=== PATIENT | female | born 1935 | race Caucasian/White ===

== ENCOUNTER 2016-05-14 12:01 | Inpatient (IN) | payer MEDICARE, OTHER ==
[~2016-05-14] VITALS: Ht 160 cm; Wt 63.6 kg
[~2016-05-14 12:01] MED LIST: AMIO200T2 PO; APIX5TAB PO; BISA5TAB6 PO; CALC1TAB79 PO; FLUO20CA22 PO; FURO20TA3 PO; LEVO88TA44 PO; MODA200T35 PO; MTF1000T PO; NATE120T12 PO; PANT40TA4 PO; PRED1TAB17 PO; PRED5 PO; RANI150T9 PO; SITA100T8 PO; SPIR25TA76 PO; TEN25 PO
[2016-05-14 12:15] VITALS: BP 133/67; PULSE 70; PULSE 72; RESP 16
[2016-05-14 13:39] VITALS: PULSE 54
[2016-05-14] MEDS: SOD CHLORIDE 0.45% 1,000 ML IV SCH (13:43)
[2016-05-14] MEDS ORDERED: NACL 0.9% 3 ML SYG IV SCH (14:00)
[2016-05-14] MEDS: ACCUCHECK XX SCH ×2 (14:00→21:38)
--- NOTE | 2016-05-14 14:21 | HP ---
Date/Time of Note Date/Time of Note DATE: 05/14/16 TIME: 14:11 Assessment/Plan VTE Prophylaxis VTE Prophylaxis Intervention: SCD's Assessment/Plan Problems: (1) Hypothyroidism Status: Chronic Comment: She will be maintained on her levothyroxine replacement therapy please note with the history of the pituitary adenoma we go by free T4 and free T3 to balance Qualifiers: Hypothyroidism type: acquired Qualified Code: E03.9 - Acquired hypothyroidism (2) Adrenal insufficiency Status: Chronic Comment: She will be maintained on her replacement dose steroids prednisone 4 mg morning 2 mg in the afternoon (3) Depression Status: Chronic Comment: She has been on antidepressant therapy with modest response. She is under the care of a board certified geriatric psychiatrist. Her medications will be maintained as an inpatient Qualifiers: Depression Type: major depressive disorder Major depression recurrence: recurrent Active/Remission status: currently active Major depression episode severity: severe Psychotic features: without psychotic features Qualified Code: F33.2 - Severe episode of recurrent major depressive disorder, without psychotic features (4) KATHERYN (obstructive sleep apnea) Status: Chronic Comment: She will have BiPAP overnight during sleep hours (5) Atrial fibrillation Status: Chronic Comment: She remains on her amiodarone as well as blood thinners. Cardiology is consulted (6) CHF with left ventricular diastolic dysfunction, NYHA class 1 Status: Chronic Comment: Noted and she remains on her medication therapy. (7) Diabetes mellitus type 2 in nonobese Status: Chronic Comment: I will adjust her medications after hold her metformin for 2 days after the angiographic dye. (8) Pituitary adenoma Status: Chronic Comment: Noted. (9) Frailty Status: Chronic Comment: She has been an [facility] resident will continue trying to work with her as best were able to (10) Acute occipital temporal infarction Status: Acute Comment: As per the outpatient neurologist Dr. Eligio Peña and will perform the aggressive evaluation. This occurred while she was on Eliquis. The question is whether or not she does in spite of the Eliquis or whether or not there is another issue. (11) Osteoporosis Status: Chronic Comment: Noted resume [facility] HPI/ROS Admit Date/Time Admit Date/Time May 14, 2016 at 12:01 Hx of Present Illness This is a 80-year-old English female who had been residing in an F after some falls at home. She was seen as outpatient consultation in neurology by Dr. Carlos Peña who ordered MRI scans of the cervical spine and brain and evaluation. This was done 48 hours ago. He was contacted by radiology and advised of acute versus subacute occipital lesions 2. Because of this and the patient has been on Eliquis to avoid this he has requested the patient be admitted and undergo CT angiography of the head and neck as well as echocardiography and cardiology consultation. This is in progress now. Patient has not been noting specific neurologic symptoms. Please note she had a fall at the [facility] roughly 5 days ago and has an ecchymosis on the right anterior forehead but the MRI scan performed after that event did not find any evidence of subdural hematoma. ROS Constitutional: no complaints Respiratory: no complaints Cardiovascular: no complaints (No palpitation) Gastrointestinal: no complaints Genitourinary: no complaints PMH/Family/Social Past Medical History Please see problem list Medical History: congestive heart failure (Diastolic dysfunction), diabetes ( Diabetes mellitus type 2), hypertension, hypothyroid, other (Status post prior CVA; atrial fibrillation; diastolic dysfunction; major depressive disorder) Past Surgical History Past Surgical Hx: noncontributory, other Family History Significant Family History: diabetes, hypertension Social History Alcohol Use: none Smoking Status: Never smoker Drug Use: none Exam/Review of Systems Vital Signs Vitals Vital Signs Date Time Temp Pulse Resp B/P Pulse Ox O2 Delivery O2 Flow Rate FiO2 05/14/16 13:39 54 Exam Constitutional: alert Psych: depression Head: hematomas (Hematoma right anterior forehead 2 cm) Eyes: EOMI, nl conjunctiva, nl lids, nl sclera ENMT: mucosa pink and moist, nl external ears & nose, nl lips & teeth, nl nasal mucosa & septum Neck: non-tender, supple Respiratory: clear to auscultation, normal air movement Cardiovascular: nl pulses, regular rate and rhythm Gastrointestinal: nl liver, spleen, non-tender, soft Genitourinary - Male: nl penis Musculoskeletal: nl extremities to inspection, other (Lower extremities with muscular atrophy) Extremities: normal pulses Neurological: DAIRY NUTRITION SPECIALIST II-XII intact, nl speech Medications Medications Current Medications Sodium Chloride (1/2 NS) 1,000 ml @ 70 mls/hr [id number] IV ; Start 05/14/16 at 13 :43 Heparin Sodium (Porcine) (Heparin (5000 Units/0.5 ml)) 5,000 unit Q12 SC ; Start 05/14/16 at 21:00 Insulin Glargine (Lantus) 14 unit QAM SC ; Start 05/15/16 at 09:00 Diagnostic Test (Pha) (Accucheck) 1 ea 02 XX ; Start 05/15/16 at 02:00 Miscellaneous Information 1 ea NOTE XX ; Start 05/14/16 at 14:30 Glucose (Glutose) 15 gm Q15M PRN PO DECREASED GLUCOSE; Start 05/14/16 at 14:30 Glucose (Glutose) 22.5 gm Q15M PRN PO DECREASED GLUCOSE; Start 05/14/16 at 14: 30 Dextrose (D50w Syringe) 25 ml Q15M PRN IV DECREASED GLUCOSE; Start 05/14/16 at 14:30 Dextrose (D50w Syringe) 50 ml Q15M PRN IV DECREASED GLUCOSE; Start 05/14/16 at 14:30 Glucagon (Glucagen) 1 mg Q15M PRN IM DECREASED GLUCOSE; Start 05/14/16 at 14:30 Glucose (Glutose) 15 gm Q15M PRN BUCCAL DECREASED GLUCOSE; Start 05/14/16 at 14 :30 JHONY BUCKNER MD May 14, 2016 14:21
[2016-05-14] MEDS ORDERED: GLUCOSE GEL 15 GRAM TUBE BUCCAL PRN (14:30)
[2016-05-14] MEDS ORDERED: GLUCAGON 1 MG INJ IM PRN (14:30)
[2016-05-14] MEDS: ACETYLCYSTEINE 600 MG CAP PO SCH ×2 (14:30→21:30)
[2016-05-14] MEDS ORDERED: GLUCOSE GEL 15 GRAM TUBE PO PRN ×2 (14:30)
[2016-05-14] MEDS ORDERED: BISACODYL (EC) 5 MG TAB PO PRN (14:30)
[2016-05-14] MEDS ORDERED: DEXTROSE 50% 50 ML SYRINGE IV PRN ×2 (14:30)
[2016-05-14 14:42] VITALS: Ht 160 cm; Wt 63.6 kg
[2016-05-14 15:02] LABS: BASOPHIL # 0.1 10^3/ul (0.0-0.1); EOSINOPHILS # 0.2 10^3/ul (0.0-0.5); EOSINOPHILS % 3.7 % (0.0-7.0); HEMATOCRIT 29.6 % (37.0-47.0); HEMOGLOBIN 9.2 g/dl (12.0-16.0); LYMPHOCYTES # 1.9 10^3/ul (0.8-2.9); LYMPHOCYTES % 30.7 % (15.0-51.0); MEAN CORPUSCULAR HEMOGLOBIN 20.4 pg (29.0-33.0); MEAN CORPUSCULAR HGB CONC 31.2 g/dl (32.0-37.0); MEAN CORPUSCULAR VOLUME 65.5 fl (82.0-101.0); MEAN PLATELET VOLUME 10.4 fl (7.4-10.4); MONOCYTE # 0.7 10^3/ul (0.3-0.9); NEUTROPHIL # 3.4 10^3/ul (1.6-7.5); NEUTROPHILS % 53.6 % (39.0-77.0); PLATELET COUNT 234 10^3/UL (140-440); RED BLOOD COUNT 4.52 10^6/ul (4.20-5.40); RED CELL DISTRIBUTION WIDTH 24.2 % (11.5-14.5); UNCORRECTED WBC 6.3 10^3/ul (4.8-10.8); WHITE BLOOD COUNT 6.3 10^3/ul (4.8-10.8)
[2016-05-14 15:04] LABS: INR 1.23; PROTIME 15.6 Sec (12.2-14.2); PT RATIO 1.2
[2016-05-14 15:05] LABS: ALBUMIN 3.3 g/dl (3.3-4.9); POTASSIUM 4.3 mmol/L (3.5-5.1)
[2016-05-14 15:07] LABS: BILIRUBIN,INDIRECT 0.1 mg/dl (0-1.1); BILIRUBIN,TOTAL 0.1 mg/dl (0.2-1.3); CREATININE 0.97 mg/dl (0.44-1.00)
[2016-05-14 15:08] LABS: ALBUMIN/GLOBULIN RATIO 1.1; CALCIUM 8.2 mg/dl (8.4-10.2); TOTAL PROTEIN 6.3 g/dl (6.1-8.1)
[2016-05-14 15:12] LABS: CONDITION 1; LH ANALYZER COMMENTS 1
[2016-05-14 16:00] VITALS: BP 141/65; PULSE 79; RESP 19
[2016-05-14] MEDS ORDERED: IODIXANOL LOCM 100 ML BTL ONE (16:03)
[2016-05-14] MEDS ORDERED: SOD CHLORIDE 0.9% 100 ML ONE (16:03)
--- NOTE | 2016-05-14 16:57 | RADRPT ---
PROCEDURE: CTA head. CLINICAL INDICATION: CVA. TECHNIQUE: The study was performed utilizing multidetector CT scanner. Direct thin section axial s ections were obtained through the head after the uneventful administration of 80 cc of Visipaque 320 nonionic intravenous contrast material. Coronal and sagittal as well as maximal intensity projecti on reformations were obtained. 3-D images were made. The images were reviewed on a PACS workstation . One or more the following does reduction techniques were utilized: Automated exposure control, adj ustment of themA/ or kV according to patient's size, or use of iterative reconstruction technique. T he total CTDIvol is 41.82 mGy and the DLP is 591.98 mGy-cm. COMPARISON: Brain CT 11/15/2014. Brain MRI 05/12/2016 from [facility]. FINDINGS: There are atherosclerosis calcifications of cavernous and supraclinoid segments of the internal cooley tid arteries with associated mild to moderate stenosis. Moderate to marked focal stenosis of proxima l bilateral A2 segments of anterior cerebral arteries are noted. Otherwise the proximal middle cereb ral arteries and remainder of anterior cerebral arteries are patent without significant stenosis. M oderate to marked focal stenosis is noted in the proximal P1 segment and mild to moderate focal sten osis in the proximal P2 segment of the right posterior cerebral artery. Moderate focal stenosis is noted in the proximal P2 segment of the left posterior cerebral artery. Moderate focal stenosis of p roximal right intradural vertebral artery is noted. Otherwise the remainder of intracranial vertebr al arteries as well as basilar artery are also unremarkable without significant stenosis. No aneury sm or vascular malformation is identified. Cystic lesion is again noted in the sella turcica which is better seen on prior brain MRI. Right frontal scalp swelling and hematoma is again noted without underlying skull fracture. IMPRESSION: 1. Mild to moderate stenosis of cavernous and supraclinoid segments of the internal carotid arterie s. 2. Moderate to marked focal stenosis of proximal bilateral A2 segments of anterior cerebral arterie s. 3. Moderate to marked focal stenosis in the proximal P1 segment and mild to moderate focal stenosis in the proximal P2 segment of the right posterior cerebral artery. 4. Moderate focal stenosis in the proximal P2 segment of the left posterior cerebral artery. 5. Moderate focal stenosis of proximal right intradural vertebral artery. 6. Cystic lesion is again noted in the sella turcica which is better seen on prior brain MRI, pleas e refer to prior brain MRI report for details and recommendation. RPTAT: HH .Jonathan Padilla MD, MD Date Time Electronically viewed and signed by .Jonathan Padilla MD, MD on 05/14/2016 16:57 .N/
[2016-05-14] MEDS: predniSONE 1 MG TAB PO SCH (17:35)
--- NOTE | 2016-05-14 17:41 | RADRPT ---
Echocardiogram Report Patient Name: VISHNU GARCIA Gender: Female Date: 1935 Study Date: 14-May-2016 [employer] Specialist: [facility] Location: 5567 Ref. Physician: JHONY BUCKNER Quality: Adequate Procedures: Transthoracic echocardiogram with complete 2D, M-Mode, and doppler examination. Indications: Occipital Cerebrovascular Accident. 2D/M Mode Doppler Measurement Value Normal Ranges Measurement Value Normal Ranges LVIDd 2D 4.5 3.5 - 5.6 cm AV Peak Jens 1.1 m/sec LVIDs 2D 2.1 2.1 - 4.1 cm AV Peak PG 5.1 mmHg LVPWd 2D 1.0 0.6 - 1.1 cm AI Peak PG 30.7 mmHg IVSd 2D 1.0 0.6 - 1.1 cm AI Peak Jens 2.8 m/sec AoR Diam 2D 3.0 2.0 - 3.7 cm AI PHT 611.8 msec EDV 2D 94.4 cm3 LVOT Peak Jens 0.8 m/sec ESV 2D 9.2 cm3 LVOT Peak PG 2.7 mmHg LA Dimen 2D 3.8 2.3 - 4.0 cm MV E Peak Jens 1.2 m/sec MV A Peak Jens 0.6 m/sec MV E/A 2.2 MV Decel Time 230 msec MV Decel Ogle 5 MV E/A 2.2 TR Peak Jens 2.6 m/sec TR Peak PG 26.1 mmHg RVSP 29.0 mmHg Findings Left Ventricle: Normal left ventricular systolic function. Normal left ventricular cavity size. Mild concentric left ventricular hypertrophy. Ejection fraction is visually estimated at 65 %. Right Ventricle: Normal right ventricular size. Normal right ventricular systolic function. Left Atrium: There is mild enlargement of left atrium. Right Atrium: The right atrium is normal in size. Mitral Valve: Mild mitral leaflet calcification. Moderate mitral annular calcification. Trace mitral regurgitation. Aortic Valve: Aortic cusps appear mildly calcified. Mild aortic valve regurgitation. Tricuspid Valve: Normal appearance of the tricuspid valve. Estimated peak PA systolic pressure 29 mmHg. There is mild tricuspid regurgitation. Pericardium: Normal pericardium with no significant pericardial effusion. Aorta: Normal aortic root. IVC: Normal size and normal respiratory collapse consistent with normal right atrial pressure. Conclusions 1.Normal left ventricular systolic function. Normal left ventricular cavity size. Mild concentric left ventricular hypertrophy. Ejection fraction is visually estimated at 65 %. 2.There is mild enlargement of left atrium. 3.Mild mitral leaflet calcification. Moderate mitral annular calcification. Trace mitral regurgitation. 4.Aortic cusps appear mildly calcified. Mild aortic valve regurgitation. 5.Normal appearance of the tricuspid valve. Estimated peak PA systolic pressure 29 mmHg. There is mild tricuspid regurgitation. 6.Normal size and normal respiratory collapse consistent with normal right atrial pressure. Electronically Signed By: Jet Lipscomb 14-May-2016 17:41:07 -0800 Patient Name: VISHNU GARCIA Study Date: 14-May-2016 [id number]
[2016-05-14 17:46] VITALS: PULSE 55
[2016-05-14] MEDS: INSULIN ASPART [NOVOLOG] 3 ML PEN SC SCH ×3 (18:05→21:00)
--- NOTE | 2016-05-14 18:48 | CONS ---
DATE OF ADMISSION: 05/14/2016 DATE OF CONSULTATION: 05/14/2016 REFERRING PHYSICIAN: Dr. Mckeon. REASON FOR CONSULTATION: Atrial fibrillation. CHIEF COMPLAINT: Abnormal MRI consistent with subacute or acute stroke. HISTORY OF PRESENT ILLNESS: This is a cardiology consultation. Thank you for this referral. Histor y obtained from the patient, discussion with her daughters, discussion with Dr. Mckeon, review of the old chart, discussion with the patient's neurologist, Dr. Peña. This is a pleasant 80-year-old female with a complicated medical history who has been in a alf. The patient was seen by her a new neurologist, Dr. Peña last week as part of and dementia w ork. MRI was ordered. Apparently the day after, she was seen by her neurologist. She had a mech anical fall. She states that she remembers the event well. She was sitting in the wheelchair. She tried to push the table and when she pushed it too hard, she fell off of her wheelchair and hit her head. She has a bump on her head. Apparently, her Eliquis and has not been discontinued given for that reason. She had an MRI done 2 days ago which was about 5 days after the head injury. MRI as an outpatient per Dr. Peña's verbal report to me has shown acute/subacute CVA. The patient's MRI result was obtained today and the patient was advised to be admitted for further workup. The patien t denies any chest pain to me. Denies any palpitation to me at this point. Denies any PND, orthopn ea to me. PAST MEDICAL HISTORY: History of congestive heart failure secondary to diastolic dysfunction, histo ry of diabetes, hypertension, hypothyroidism, and history of multiple prior CVAs, history of paroxys mal atrial fibrillation and multiple DC cardioversions, has remained stable on amiodarone, history o f depression, history of obstructive sleep apnea, history of renal insufficiency. MEDICATIONS: As per medication reconciliation, personally reviewed. SOCIAL HISTORY: The patient does not smoke or drink. Currently, lives at [facility]. She has bee n living with the family and has a very supportive family. Daughter is an RN. ALLERGIES: NO KNOWN ALLERGIES. MEDICATIONS: As per medical reconciliation reviewed. FAMILY HISTORY: No reported early coronary artery disease. REVIEW OF SYSTEMS: As above-mentioned, patient also with general weakness. PHYSICAL EXAMINATION: VITAL SIGNS: Temperature 98, heart rate 55, blood pressure 141/65, respiration rate of 19, saturati ng 92%. HEENT: Normocephalic, atraumatic. Appears in no acute distress. Pupils are equal and round. CARDIOVASCULAR: Regular rate and rhythm. Systolic murmur. PULMONARY: With no wheezes anteriorly. GASTROINTESTINAL: Soft, nontender. EXTREMITIES: With diffuse edema. NEUROLOGIC: Awake, responds appropriately. PSYCHIATRIC: Appears to be calm and pleasant. LABORATORY: WBC of 6.3, hemoglobin 9.2, platelets 234. Sodium 138, potassium 4.3, BUN of 24, creat inine 0.97, glucose 114. WBC on the monitor shows sinus. Echocardiogram was personally reviewed, s howed normal LV size and systolic function. The left atrium appeared to be mildly dilated on the 2D . There is mild LVH. Head CTA shows mild to moderate stenosis of the cavernous sinus of the i nternal carotid arteries. Moderate to marked focal stenosis in the proximal bilateral A2 segment of anterior cerebral arteries. Moderate to marked focal stenosis of the proximal P1 segment of the ri ght posterior cerebral artery. Moderate focal stenosis of the left posterior cerebral artery. Mode rate focal stenosis in the proximal right intradural vertebral artery, a cystic lesion. ASSESSMENT AND PLAN: 1. Possibly acute versus/subacute stroke with history of paroxysmal atrial fibrillation, currently remains in sinus rhythm on amiodarone. 2. History of hypertension, currently well controlled. 3. History of diabetes being controlled with Dr. Mckeon. 4. History of thyroid disorder. 5. 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 6. Fall risk. RECOMMENDATIONS: MRI of the head to be repeated to see if it confirms acute stroke. If there is a stroke reported, then we will have to decide what to do with anticoagulation. If there is no other cause such as carotid disease, the option would be an addition of aspirin or Plavix to her Eliquis versus continuation of current care. Ideally, I would be adding aspirin; however, I am also concern ed about her fall risk. Will discuss further with Dr. Mckeon. Other option would be to decrease the Eliquis dose to 2.5 b.i.d. and then add an aspirin to it. For now, we are awaiting the MRI results of the head. Dictated By: CLEOPATRA SENIOR/CONOR Conf#: [id number] DID#: [id number]
[2016-05-14 20:00] VITALS: PULSE 50
[2016-05-14 20:15] VITALS: BP 125/59; PULSE 54; RESP 14
[2016-05-14] MEDS ORDERED: HEPARIN 5,000 UNIT/0.5 ML SYG SC SCH (21:00)
[2016-05-14] MEDS: ATENOLOL 25 MG TAB PO SCH (21:00)
[2016-05-14] MEDS: MIRTAZAPINE 15 MG TAB PO SCH (21:30)
[2016-05-14] MEDS: FAMOTIDINE 20 MG TAB PO SCH (21:30)
[2016-05-14] MEDS: APIXABAN 5 MG TABLET PO SCH (21:30)
[2016-05-14] MEDS: AMIODARONE 200 MG TAB PO SCH (21:31)
[2016-05-15] VITALS (11 sets, daily range): BP systolic 106–165; BP diastolic 51–67; PULSE 52–63; RESP 16–19
[2016-05-15] MEDS: ACCUCHECK XX SCH ×4 (01:49→20:41)
[2016-05-15] MEDS: SOD CHLORIDE 0.45% 1,000 ML IV SCH ×2 (04:01→09:00)
[2016-05-15] MEDS: LEVOTHYROXINE 88 MCG TAB PO SCH (06:11)
[2016-05-15] MEDS: INSULIN ASPART [NOVOLOG] 3 ML PEN SC SCH ×7 (08:00→20:41)
[2016-05-15 08:18] LABS: BASOPHIL # 0.1 10^3/ul (0.0-0.1); BASOPHILS % 1.3 % (0.0-2.0); EOSINOPHILS # 0.2 10^3/ul (0.0-0.5); EOSINOPHILS % 1.9 % (0.0-7.0); HEMATOCRIT 29.8 % (37.0-47.0); HEMOGLOBIN 9.4 g/dl (12.0-16.0); LYMPHOCYTES # 3.7 10^3/ul (0.8-2.9); LYMPHOCYTES % 46.6 % (15.0-51.0); MEAN CORPUSCULAR HEMOGLOBIN 20.5 pg (29.0-33.0); MEAN CORPUSCULAR HGB CONC 31.5 g/dl (32.0-37.0); MEAN CORPUSCULAR VOLUME 65.2 fl (82.0-101.0); MONOCYTE # 0.8 10^3/ul (0.3-0.9); MONOCYTES % 10.5 % (0.0-11.0); NEUTROPHIL # 3.1 10^3/ul (1.6-7.5); NEUTROPHILS % 39.7 % (39.0-77.0); PLATELET COUNT 268 10^3/UL (140-440); RED BLOOD COUNT 4.57 10^6/ul (4.20-5.40); RED CELL DISTRIBUTION WIDTH 24.1 % (11.5-14.5); UNCORRECTED WBC 7.8 10^3/ul (4.8-10.8); WHITE BLOOD COUNT 7.8 10^3/ul (4.8-10.8)
[2016-05-15 08:24] LABS: CONDITION 1; LH ANALYZER COMMENTS 1
[2016-05-15] MEDS: APIXABAN 5 MG TABLET PO SCH ×2 (08:30→20:40)
[2016-05-15] MEDS: FLUOXETINE 20 MG CAP PO SCH (08:31)
[2016-05-15] MEDS: LINAGLIPTIN 5 MG TABLET PO SCH (08:31)
[2016-05-15] MEDS: AMIODARONE 200 MG TAB PO SCH ×2 (08:32→20:40)
[2016-05-15] MEDS: FUROSEMIDE 20 MG TAB PO SCH (08:33)
[2016-05-15] MEDS: ATENOLOL 25 MG TAB PO SCH ×2 (08:33→20:39)
[2016-05-15] MEDS: predniSONE 1 MG TAB PO SCH ×2 (08:34→17:31)
[2016-05-15] MEDS: ACETYLCYSTEINE 600 MG CAP PO SCH ×2 (08:34→20:40)
[2016-05-15 08:36] LABS: ALBUMIN 3.1 g/dl (3.3-4.9)
[2016-05-15 08:38] LABS: CREATININE 1.17 mg/dl (0.44-1.00)
[2016-05-15 08:39] LABS: ALBUMIN/GLOBULIN RATIO 1.03; BILIRUBIN,INDIRECT 0.2 mg/dl (0-1.1); BILIRUBIN,TOTAL 0.2 mg/dl (0.2-1.3); CALCIUM 8.3 mg/dl (8.4-10.2); TOTAL PROTEIN 6.1 g/dl (6.1-8.1)
[2016-05-15] MEDS: INSULIN GLARGINE [LANtus] 3 ML PEN SC SCH ×2 (09:00→12:07)
[2016-05-15] MEDS: FAMOTIDINE 20 MG TAB PO SCH ×2 (09:00→20:39)
[2016-05-15] MEDS: MODAFINIL 200 MG TAB PO SCH (12:06)
--- NOTE | 2016-05-15 13:55 | PN ---
Date/Time of Note Date/Time of Note DATE: 05/15/16 TIME: 13:53 Assessment/Plan VTE Prophylaxis VTE Prophylaxis Intervention: other Lines/Catheters IV [facility]ter [facility] ([facility] Peripheral IV Urinary Cath still in place: No Assessment/Plan Problems: (1) Adrenal insufficiency Status: Chronic Comment: On replacement therapy and stable (2) Hypothyroidism Status: Chronic Comment: On replacement therapy Qualifiers: Hypothyroidism type: acquired Qualified Code: E03.9 - Acquired hypothyroidism (3) KATHERYN (obstructive sleep apnea) Status: Chronic Comment: Using BiPAP overnight CPAP when out of the hospital (4) CHF with left ventricular diastolic dysfunction, NYHA class 1 Status: Chronic Comment: Adequately controlled (5) Diabetes mellitus type 2 in nonobese Status: Chronic Comment: Well-controlled (6) Frailty Status: Chronic Comment: This continues to be a significant issue (7) Acute occipital temporal infarction Status: Acute Comment: Angiography does demonstrate significant vascular disease. However this is not necessarily in position that would be easy to intervene with. This will have to be evaluated carefully. I will try and communicate with her neurologist to discuss this. (8) Osteoporosis Status: Chronic Comment: Noted Subjective 24 Hr Interval Summary Constitutional: no complaints Respiratory: no complaints Cardiovascular: no complaints Gastrointestinal: no complaints Exam/Review of Systems Vital Signs Vitals Vital Signs Date Time Temp Pulse Resp B/P Pulse Ox O2 Delivery O2 Flow Rate FiO2 05/15/16 12:12 53 05/15/16 12:00 97.6 18 109/55 95 05/15/16 04:00 Room Air Intake and Output 05/14/16 05/14/16 05/15/16 15:00 23:00 07:00 Intake Total 0 ml 1200 ml Balance 0 ml 1200 ml Exam Constitutional: alert, oriented Respiratory: clear to auscultation, normal air movement Cardiovascular: nl pulses, regular rate and rhythm Gastrointestinal: nl liver, spleen, non-tender, soft Results Result Diagram: 05/15/16 0658 05/15/16 0658 Results 24 hrs Laboratory Tests Test 05/14/16 14:26 05/14/16 17:16 05/14/16 21:37 05/15/16 01:47 Activated Partial Thromboplast Time 30.0 Alanine Aminotransferase (ALT/SGPT) 40 Albumin 3.3 Albumin/Globulin Ratio 1.10 Alkaline Phosphatase 105 Anion Gap 16 Aspartate Amino Transf (AST/SGOT) 40 Basophils # 0.1 Basophils % 1.0 Blood Morphology Comment Blood Urea Nitrogen 24 H Calcium Level 8.2 L Carbon Dioxide Level 26 Chloride Level 100 Creatinine 0.97 Direct Bilirubin 0.00 Eosinophils # 0.2 Eosinophils % 3.7 Globulin 3.00 Glucose Level 114 Hematocrit 29.6 L Hemoglobin 9.2 L INR International Normalized Ratio 1.23 Indirect Bilirubin 0.1 Lymphocytes # 1.9 Lymphocytes % 30.7 Mean Corpuscular Hemoglobin 20.4 L Mean Corpuscular Hemoglobin Concent 31.2 L Mean Corpuscular Volume 65.5 L Mean Platelet Volume 10.4 Monocytes # 0.7 Monocytes % 11.0 Neutrophils # 3.4 Neutrophils % 53.6 Nucleated Red Blood Cells # 0.0 Nucleated Red Blood Cells % 0.0 Platelet Count 234 # Potassium Level 4.3 Prothrombin Time 15.6 H Prothrombin Time Ratio 1.2 Red Blood Count 4.52 Red Cell Distribution Width 24.2 H Sodium Level 138 Total Bilirubin 0.1 L Total Protein 6.3 White Blood Count 6.3 Bedside Glucose 115 118 82 Test 05/15/16 06:58 05/15/16 08:22 05/15/16 11:21 Alanine Aminotransferase (ALT/SGPT) 50 Albumin 3.1 L Albumin/Globulin Ratio 1.03 Alkaline Phosphatase 107 Anion Gap 14 Aspartate Amino Transf (AST/SGOT) 41 Basophils # 0.1 Basophils % 1.3 Blood Morphology Comment Blood Urea Nitrogen 22 H Calcium Level 8.3 L Carbon Dioxide Level 30 Chloride Level 98 Creatinine 1.17 H Direct Bilirubin 0.00 Eosinophils # 0.2 Eosinophils % 1.9 Globulin 3.00 Glucose Level 65 #L Hematocrit 29.8 L Hemoglobin 9.4 L Hemoglobin A1c 5.6 Indirect Bilirubin 0.2 Lymphocytes # 3.7 H Lymphocytes % 46.6 Mean Corpuscular Hemoglobin 20.5 L Mean Corpuscular Hemoglobin Concent 31.5 L Mean Corpuscular Volume 65.2 L Mean Platelet Volume 10.0 Monocytes # 0.8 Monocytes % 10.5 Neutrophils # 3.1 Neutrophils % 39.7 Nucleated Red Blood Cells # 0.0 Nucleated Red Blood Cells % 0.0 Platelet Count 268 Potassium Level 4.0 Red Blood Count 4.57 Red Cell Distribution Width 24.1 H Sodium Level 138 Total Bilirubin 0.2 Total Protein 6.1 White Blood Count 7.8 # Bedside Glucose 86 121 Medications Medications Current Medications Sodium Chloride (1/2 NS) 1,000 ml @ 70 mls/hr [id number] IV Last administered on 05/15/16 09:00; Admin Dose 70 MLS/HR; Start 05/14/16 at 13:43 Insulin Glargine (Lantus) 14 unit QAM SC Last administered on 05/15/16 12:07; Admin Dose 14 UNIT; Start 05/15/16 at 09:00 Diagnostic Test (Pha) (Accucheck) 1 ea 02 XX ; Start 05/15/16 at 02:00 Miscellaneous Information 1 ea NOTE XX ; Start 05/14/16 at 14:30 Glucose (Glutose) 15 gm Q15M PRN PO DECREASED GLUCOSE; Start 05/14/16 at 14:30 Glucose (Glutose) 22.5 gm Q15M PRN PO DECREASED GLUCOSE; Start 05/14/16 at 14: 30 Dextrose (D50w Syringe) 25 ml Q15M PRN IV DECREASED GLUCOSE; Start 05/14/16 at 14:30 Dextrose (D50w Syringe) 50 ml Q15M PRN IV DECREASED GLUCOSE; Start 05/14/16 at 14:30 Glucagon (Glucagen) 1 mg Q15M PRN IM DECREASED GLUCOSE; Start 05/14/16 at 14:30 Glucose (Glutose) 15 gm Q15M PRN BUCCAL DECREASED GLUCOSE; Start 05/14/16 at 14 :30 Acetylcysteine (Nac) 1,200 mg BID PO Last administered on 05/15/16 08:34; Admin Dose 1,200 MG; Start 05/14/16 at 14:30; Stop 05/17/16 at 14:29 Amiodarone HCl (Cordarone) 200 mg BID PO Last administered on 05/15/16 08:32; Admin Dose 200 MG; Start 05/14/16 at 21:00 Atenolol (Tenormin) 12.5 mg BID PO Last administered on 05/15/16 08:33; Admin Dose 12.5 MG; Start 05/14/16 at 21:00 Fluoxetine HCl (Prozac) 80 mg DAILY PO Last administered on 05/15/16 08:31; Admin Dose 80 MG; Start 05/15/16 at 09:00 Prednisone (Prednisone) 4 mg DAILY PO Last administered on 05/15/16 08:34; Admin Dose 4 MG; Start 05/15/16 at 09:00 Furosemide (Lasix) 20 mg DAILY PO Last administered on 05/15/16 08:33; Admin Dose 20 MG; Start 05/15/16 at 09:00 Modafinil (Provigil) 100 mg DAILY PO Last administered on 05/15/16 12:06; Admin Dose 100 MG; Start 05/15/16 at 09:00 Famotidine (Pepcid) 20 mg BID PO Last administered on 05/15/16 09:00; Admin Dose 20 MG; Start 05/14/16 at 21:00 Mirtazapine (Remeron) 7.5 mg HS PO Last administered on 05/14/16 21:30; Admin Dose 7.5 MG; Start 05/14/16 at 21:00 Levothyroxine Sodium (Synthroid) 88 mcg DAILY@06 PO Last administered on 06:11; Admin Dose 88 MCG; Start 05/15/16 at 06:00 Bisacodyl (Dulcolax) 10 mg DAILY PRN PO CONSTIPATION; Start 05/14/16 at 14:30 Linagliptin (Tradjenta) 5 mg DAILY PO Last administered on 05/15/16 08:31; Admin Dose 5 MG; Start 05/15/16 at 09:00 Apixaban (Eliquis) 2.5 mg BID PO ; Start 05/15/16 at 21:00; Status UNV Aspirin (Halfprin) 81 mg DAILY PO ; Start 05/15/16 at 14:00; Status UNV JHONY BUCKNER MD May 15, 2016 13:55
[2016-05-15] MEDS: ASPIRIN (EC) 81 MG TAB PO SCH (15:24)
--- NOTE | 2016-05-15 16:49 | CONS ---
Date/Time of Note Date/Time of Note DATE: 05/15/16 TIME: 16:46 Assessment/Plan Assessment/Plan Chief Complaint/Hosp Course 1. Possibly acute versus/subacute stroke with history of paroxysmal atrial fibrillation, currently remains in sinus rhythm on amiodarone. 2. History of hypertension, currently well controlled. 3. History of diabetes 4. History of thyroid disorder. 5. 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 6. Fall risk. Problems: Additional Assessment/Plan continue current meds role of AC to be evaluated but given recurrent CVA benefits of eliquis may >> risk despite fall risk Consultation Date/Type/Reason Admit Date/Time May 14, 2016 at 12:01 Initial Consult Date Type of Consultation: cv 24 HR Interval Summary Free Text/Dictation no chest pain, no sob, fatigued, Detailed Summary Respiratory: no complaints Cardiovascular: no complaints Gastrointestinal: no complaints Musculoskeletal: no complaints Skin: no complaints Neurologic: focal-weakness Exam/Review of Systems Vital Signs Vitals Vital Signs Date Time Temp Pulse Resp B/P Pulse Ox O2 Delivery O2 Flow Rate FiO2 05/15/16 16:11 54 05/15/16 15:37 97.9 18 106/51 92 05/15/16 04:00 Room Air Intake and Output 05/14/16 05/14/16 05/15/16 15:00 23:00 07:00 Intake Total 0 ml 1200 ml Balance 0 ml 1200 ml Exam Constitutional: frail Neck: supple Respiratory: clear to auscultation Cardiovascular: regular rate and rhythm Gastrointestinal: soft Musculoskeletal: nl extremities to inspection Results Result Diagram: 05/15/16 0658 05/15/16 0658 Results 24 hrs Laboratory Tests Test 05/14/16 17:16 05/14/16 21:37 05/15/16 01:47 05/15/16 06:58 Bedside Glucose 115 118 82 Alanine Aminotransferase (ALT/SGPT) 50 Albumin 3.1 L Albumin/Globulin Ratio 1.03 Alkaline Phosphatase 107 Anion Gap 14 Aspartate Amino Transf (AST/SGOT) 41 Basophils # 0.1 Basophils % 1.3 Blood Morphology Comment Blood Urea Nitrogen 22 H Calcium Level 8.3 L Carbon Dioxide Level 30 Chloride Level 98 Creatinine 1.17 H Direct Bilirubin 0.00 Eosinophils # 0.2 Eosinophils % 1.9 Globulin 3.00 Glucose Level 65 #L Hematocrit 29.8 L Hemoglobin 9.4 L Hemoglobin A1c 5.6 Indirect Bilirubin 0.2 Lymphocytes # 3.7 H Lymphocytes % 46.6 Mean Corpuscular Hemoglobin 20.5 L Mean Corpuscular Hemoglobin Concent 31.5 L Mean Corpuscular Volume 65.2 L Mean Platelet Volume 10.0 Monocytes # 0.8 Monocytes % 10.5 Neutrophils # 3.1 Neutrophils % 39.7 Nucleated Red Blood Cells # 0.0 Nucleated Red Blood Cells % 0.0 Platelet Count 268 Potassium Level 4.0 Red Blood Count 4.57 Red Cell Distribution Width 24.1 H Sodium Level 138 Total Bilirubin 0.2 Total Protein 6.1 White Blood Count 7.8 # Test 05/15/16 08:22 05/15/16 11:21 05/15/16 15:03 Bedside Glucose 86 121 203 Medications Medications Current Medications Sodium Chloride (1/2 NS) 1,000 ml @ 70 mls/hr [id number] IV Last administered on 05/15/16 09:00; Admin Dose 70 MLS/HR; Start 05/14/16 at 13:43 Insulin Glargine (Lantus) 14 unit QAM SC Last administered on 05/15/16 12:07; Admin Dose 14 UNIT; Start 05/15/16 at 09:00 Diagnostic Test (Pha) (Accucheck) 1 ea 02 XX ; Start 05/15/16 at 02:00 Miscellaneous Information 1 ea NOTE XX ; Start 05/14/16 at 14:30 Glucose (Glutose) 15 gm Q15M PRN PO DECREASED GLUCOSE; Start 05/14/16 at 14:30 Glucose (Glutose) 22.5 gm Q15M PRN PO DECREASED GLUCOSE; Start 05/14/16 at 14: 30 Dextrose (D50w Syringe) 25 ml Q15M PRN IV DECREASED GLUCOSE; Start 05/14/16 at 14:30 Dextrose (D50w Syringe) 50 ml Q15M PRN IV DECREASED GLUCOSE; Start 05/14/16 at 14:30 Glucagon (Glucagen) 1 mg Q15M PRN IM DECREASED GLUCOSE; Start 05/14/16 at 14:30 Glucose (Glutose) 15 gm Q15M PRN BUCCAL DECREASED GLUCOSE; Start 05/14/16 at 14 :30 Acetylcysteine (Nac) 1,200 mg BID PO Last administered on 05/15/16 08:34; Admin Dose 1,200 MG; Start 05/14/16 at 14:30; Stop 05/17/16 at 14:29 Amiodarone HCl (Cordarone) 200 mg BID PO Last administered on 05/15/16 08:32; Admin Dose 200 MG; Start 05/14/16 at 21:00 Atenolol (Tenormin) 12.5 mg BID PO Last administered on 05/15/16 08:33; Admin Dose 12.5 MG; Start 05/14/16 at 21:00 Fluoxetine HCl (Prozac) 80 mg DAILY PO Last administered on 05/15/16 08:31; Admin Dose 80 MG; Start 05/15/16 at 09:00 Prednisone (Prednisone) 4 mg DAILY PO Last administered on 05/15/16 08:34; Admin Dose 4 MG; Start 05/15/16 at 09:00 Furosemide (Lasix) 20 mg DAILY PO Last administered on 05/15/16 08:33; Admin Dose 20 MG; Start 05/15/16 at 09:00 Modafinil (Provigil) 100 mg DAILY PO Last administered on 05/15/16 12:06; Admin Dose 100 MG; Start 05/15/16 at 09:00 Famotidine (Pepcid) 20 mg BID PO Last administered on 05/15/16 09:00; Admin Dose 20 MG; Start 05/14/16 at 21:00 Mirtazapine (Remeron) 7.5 mg HS PO Last administered on 05/14/16 21:30; Admin Dose 7.5 MG; Start 05/14/16 at 21:00 Levothyroxine Sodium (Synthroid) 88 mcg DAILY@06 PO Last administered on 06:11; Admin Dose 88 MCG; Start 05/15/16 at 06:00 Bisacodyl (Dulcolax) 10 mg DAILY PRN PO CONSTIPATION; Start 05/14/16 at 14:30 Linagliptin (Tradjenta) 5 mg DAILY PO Last administered on 05/15/16 08:31; Admin Dose 5 MG; Start 05/15/16 at 09:00 Apixaban (Eliquis) 2.5 mg BID PO ; Start 05/15/16 at 21:00 Aspirin (Halfprin) 81 mg DAILY PO Last administered on 1/14/17at 15:24; Admin Dose 81 MG; Start 05/15/16 at 14:00 SELVIN CAZARES MD May 15, 2016 16:48
[2016-05-15] MEDS: MIRTAZAPINE 15 MG TAB PO SCH (20:38)
[2016-05-16] VITALS (8 sets, daily range): BP systolic 96–135; BP diastolic 47–60; PULSE 51–54; RESP 18–19
[2016-05-16] MEDS: ACCUCHECK XX SCH ×2 (02:00→10:36)
[2016-05-16] MEDS: LEVOTHYROXINE 88 MCG TAB PO SCH (05:38)
[2016-05-16 07:59] LABS: POTASSIUM 3.9 mmol/L (3.5-5.1)
[2016-05-16] MEDS: INSULIN ASPART [NOVOLOG] 3 ML PEN SC SCH ×4 (08:00→12:51)
[2016-05-16 08:02] LABS: CREATININE 1.2 mg/dl (0.44-1.00)
[2016-05-16 08:03] LABS: CALCIUM 8.2 mg/dl (8.4-10.2)
[2016-05-16] MEDS: SOD CHLORIDE 0.45% 1,000 ML IV SCH (08:37)
[2016-05-16] MEDS: FLUOXETINE 20 MG CAP PO SCH (09:24)
[2016-05-16] MEDS: ASPIRIN (EC) 81 MG TAB PO SCH (09:24)
[2016-05-16] MEDS: ACETYLCYSTEINE 600 MG CAP PO SCH (09:24)
[2016-05-16] MEDS: LINAGLIPTIN 5 MG TABLET PO SCH (09:24)
[2016-05-16] MEDS: predniSONE 1 MG TAB PO SCH (09:24)
[2016-05-16] MEDS: APIXABAN 5 MG TABLET PO SCH (09:24)
[2016-05-16] MEDS: ATENOLOL 25 MG TAB PO SCH (09:25)
[2016-05-16] MEDS: MODAFINIL 200 MG TAB PO SCH (09:26)
[2016-05-16] MEDS: FUROSEMIDE 20 MG TAB PO SCH (09:27)
[2016-05-16] MEDS: FAMOTIDINE 20 MG TAB PO SCH (09:27)
[2016-05-16] MEDS: AMIODARONE 200 MG TAB PO SCH (09:27)
[2016-05-16] MEDS: INSULIN GLARGINE [LANtus] 3 ML PEN SC SCH (09:33)
--- NOTE | 2016-05-16 10:43 | PDOCDIS ---
Discharge Instructions DIAGNOSIS Discharge Diagnosis: Subacute occipital lobe CVA; diabetes; hypertension; hyperlipidemia; CONDITION Patient Condition: Fair HOME CARE INSTRUCTIONS: Special Diet: Carb-controlled ACTIVITY: Activity Restrictions: Slowly Increase Activity Do not Drive Do not operate Power Tool Avoid Heavy Housework FOLLOW UP/APPOINTMENTS Appointments Follow-up with neurology Dr. Eligio Peña as scheduled; cardiology with Dr. Lipscomb as scheduled JHONY BUCKNER MD May 16, 2016 10:43
--- NOTE | 2016-05-16 10:56 | DS ---
Date/Time of Note Date/Time of Note DATE: 05/16/16 TIME: 10:47 Discharge Summary Admission/Discharge Info Admit Date/Time May 14, 2016 at 12:01 Discharge Date/Time 05/16/2016 Final Diagnosis Subacute occipital CVA; diabetes mellitus type 2; hypertension; hyperlipidemia; pituitary microadenoma; hypoadrenalism; hypothyroidism; osteoarthrosis/DJD; osteoporosis; debility; paroxysmal atrial fibrillation presently in sinus rhythm ; obstructive sleep apnea; gastroesophageal reflux disease Patient Condition: Fair Consults CardiologyDr. Vahdat Procedures CT angiogram head and neck; cardiac monitoring Hx of Present Illness This is a 80-year-old [place] female who had been residing in an [facility] after some falls at home. She was seen as outpatient consultation in neurology by Dr. Carlos Peña who ordered MRI scans of the cervical spine and brain and evaluation. This was done 48 hours ago. He was contacted by radiology and advised of acute versus subacute occipital lesions 2. Because of this and the patient has been on Eliquis to avoid this he has requested the patient be admitted and undergo CT angiography of the head and neck as well as echocardiography and cardiology consultation. This is in progress now. Patient has not been noting specific neurologic symptoms. Please note she had a fall at the [facility] roughly 5 days ago and has an ecchymosis on the right anterior forehead but the MRI scan performed after that event did not find any evidence of subdural hematoma. Hospital Course 1. Possibly acute versus/subacute stroke with history of paroxysmal atrial fibrillation, currently remains in sinus rhythm on amiodarone. 2. History of hypertension, currently well controlled. 3. History of diabetes 4. History of thyroid disorder. 5. 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 6. Fall risk. 80-year-old [place] woman admitted after finding an outpatient MRI scan of unexpected bilateral small subacute occipital CVA. She was brought in and underwent cerebral CT angiography and neck CT angiography. 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 Because of this in consultation with the outpatient neurologist was opted to address her anticoagulation to include aspirin once a day and reduce the Eliquis to 2.5 twice daily. Her diabetes medications were adjusted and we will try and simplify her regimen. In addition her statin drugs have been re-instituted. She will also need placed back on Forteo when she is back at the [facility]. Her rehabilitation potential is fair Home Meds Active Scripts Prednisone* (Prednisone*) 5 Mg Tab, 2.5 MG PO QHS for 30 Days, TAB 9 Refills Prov:JHONY BUCKNER MD 03/06/16 Prednisone* (Prednisone*) 1 Mg Tab, 4 MG PO QAM for 30 Days, TAB 9 Refills Prov:JHONY BUCKNER MD 03/06/16 Amiodarone Hcl* (Amiodarone Hcl*) 200 Mg Tablet, 200 MG PO BID for 30 Days, TAB 9 Refills Prov:JHONY BUCKNER MD 03/06/16 Furosemide* (Furosemide*) 20 Mg Tablet, 20 MG PO Q2D for 30 Days, TAB Prov:JAMIN CORREIA MD 02/29/16 Modafinil* (Modafinil*) 200 Mg Tablet, 100 MG PO DAILY for 30 Days, TAB Prov:JAMIN CORREIA MD 02/29/16 Fluoxetine Hcl* (Fluoxetine Hcl*) 20 Mg Capsule, 60 MG PO QAM for 30 Days, CAP Prov:JAMIN CORREIA MD 02/29/16 Atenolol (Tenormin) 25 Mg Tab, 12.5 MG PO BID for 30 Days, TAB Prov:JAMIN CORREIA MD 02/29/16 Pantoprazole* (Pantoprazole*) 40 Mg Tabec, 40 MG PO DAILY for 30 Days Prov:JAMIN CORREIA MD 07/14/15 Ranitidine Hcl* (Zantac*) 150 Mg Tab, 300 MG PO HS for 30 Days, TAB Prov:JAMIN CORREIA MD 07/14/15 Apixaban* (Eliquis*) 5 Mg Tablet, 5 MG PO BID, #60 TAB 5 Refills Prov:MEHRAN MADDOX MD 11/02/14 Levothyroxine Sodium* (Synthroid*) 88 Mcg Tab, 88 MCG PO DAILY@06 for 30 Days Prov:JAMIN CORREIA MD 08/20/14 Reported Medications Calcium Carbonate/Vitamin D3 (Oysco 500+D Tablet) 1 Each Tablet, 1 TAB PO DAILY , TAB 02/22/16 Metformin* (Glucophage*) 1,000 Mg Tablet, 1000 MG PO BID, #60 TAB 02/22/16 Spironolactone* (Aldactone*) 25 Mg Tablet, 12.5 MG PO TWICE WEEKLY, TAB 07/11/15 Amiodarone Hcl* (Amiodarone Hcl*) 200 Mg Tablet, 200 MG PO BID, #60 TAB 07/11/15 Bisacodyl* (Bisacodyl*) 5 Mg Tablet.dr, 5 MG PO DAILY Y for CONSTIPATION, TAB 05/16/15 Nateglinide* (Starlix*) 120 Mg Tablet, 120 MG PO AC MEALS, TAB 11/15/14 Sitagliptin* (Januvia*) 100 Mg Tablet, 100 MG PO DAILY, TAB 08/01/14 Pending Labs Laboratory Tests Test 05/15/16 11:21 05/15/16 15:03 05/15/16 17:33 05/15/16 20:36 Bedside Glucose 121mg/dL (70-220) 203mg/dL (70-220) 176mg/dL (70-220) 122mg/dL (70-220) Test 05/16/16 01:42 05/16/16 06:20 05/16/16 08:09 05/16/16 10:22 Bedside Glucose 150mg/dL (70-220) 119mg/dL (70-220) 244mg/dL (70-220) Anion Gap 13 (8-16) Blood Urea Nitrogen 24mg/dl (7-20) Calcium Level 8.2mg/dl (8.4-10.2) Carbon Dioxide Level 29mmol/L (21-31) Chloride Level 99mmol/L (97-110) Creatinine 1.20mg/dl (0.44-1.00) Glucose Level 110mg/dl (70-220) Potassium Level 3.9mmol/L (3.5-5.1) Sodium Level 137mmol/L (135-144) JHONY BUCKNER MD May 16, 2016 10:56
[2016-05-16] MEDS ORDERED: ATORVASTATIN 10 MG TAB PO SCH (21:00)
[2016-05-16] MEDS ORDERED: ATORVASTATIN 40 MG TAB PO SCH (21:00)
[2016-05-17] MEDS ORDERED: FAMOTIDINE 20 MG TAB PO SCH (09:00)
== END 2016-05-16 13:20 | DRG 65 ==
LOC: MS4 12:01
PROVIDERS: ADMIT Internal Medicine; ATTEND Internal Medicine
DX: I63.9 Cerebral infarction, unspecified (principal); I50.32 Chronic diastolic (congestive) heart failure; E27.40 Unspecified adrenocortical insufficiency; E11.9 Type 2 diabetes mellitus without complications; I10 Essential (primary) hypertension; D35.2 Benign neoplasm of pituitary gland; E78.5 Hyperlipidemia, unspecified; E03.9 Hypothyroidism, unspecified; I48.0 Paroxysmal atrial fibrillation; G47.33 Obstructive sleep apnea (adult) (pediatric); K21.9 Gastro-esophageal reflux disease without esophagitis; F32.9 Major depressive disorder, single episode, unspecified; M81.0 Age-related osteoporosis without current pathological fracture
CPT/HCPCS: 70496; 80048; 80053; 82962; 83036; 85025; 85610; 85730; 93306; 97164; J1815; J7512; Q9967

== ENCOUNTER 2017-07-11 19:00 | Inpatient (IN) | END 2017-07-17 16:45 | disposition home or self-care (01) | DRG 308 ==

== ENCOUNTER 2018-02-07 10:51 | Day surgery (SDC) | END 2018-02-07 12:25 | disposition home or self-care (01) ==